=== PATIENT | female | born 1935 | race Caucasian/White ===

== ENCOUNTER → 2018-01-26 10:39 | Outpatient (CLI) | payer MEDICARE, OTHER, SELFPAY ==
--- NOTE | 2018-01-26 10:44 | CA_ITS ---
PROCEDURE: 2-D M-mode and color Doppler study INDICATIONS FOR THE TEST: Chest pain + COPD Heart Murmur Tobacco Smoking Palpitations Fatigue+ Syncope Edema Hypertension+Diabetes Mellitus Rheumatic Fever SOB WELCH Obesity Hyperlipidemia Family History HD Additional History PACER PATIENT INFORMATION HEIGHT: 66 WEIGHT:124 GENDER: Female B/P:152/87 2-D/M-MODE INTERPRETATION: 2-D MEASUREMENTS OBSERVED VALUES IN CMS Right Ventricular Dimension (RVDd) 2.4 Interventricular Septum (Thickness)(IVsd) 1.4 Left Ventricular Internal Dimensions(LVIDd) 3.8 Left Ventricular Posterior Wall (Thickness)(LVPWd) 0.6 Aortic Root 2.7 Aortic Cusp Separation 1.3 Left Atrial Dimensions (LAD) 3.2 2D 1. Left atrium is mildly enlarged, left ventricle is normal size, mild concentric left ventricular hypertrophy, visually estimated ejection fraction 55% with no obvious regional wall motion abnormality. 2. The right atrium and right ventricle are normal size and contractility, there is a pacemaker lead seen in the right atrium and right ventricle. 3. The aortic valve is minimally thickened and fibrosed. 4. The mitral and tricuspid valve leaflets are minimally thickened. 5. The pulmonic valve is poorly visualized. 6. No significant pericardial effusion noted. DOPPLER INTERROGATION: Doppler interrogation of the aortic, mitral and tricuspid valvular presence of mild mitral and tricuspid regurgitation, tricuspid and jet velocity insufficient for calculation of the right ventricular systolic pressure, diastolic parameters are inconclusive. CONCLUSION: 1. Mildly enlarged left atrium, normal left ventricular size, mild concentric left ventricular hypertrophy, visually estimated ejection fraction 55% with no obvious regional wall motion abnormality, diastolic parameters are inconclusive. 2. Mild mitral and tricuspid regurgitation 3. No significant pericardial effusion noted.
== END ==
PROVIDERS: PCP Internal Medicine; Visit Provider Internal Medicine
DX: R07.9 Chest pain, unspecified (principal); I48.0 Paroxysmal atrial fibrillation; Z95.5 Presence of coronary angioplasty implant and graft; R53.83 Other fatigue; I10 Essential (primary) hypertension
CPT/HCPCS: 93306

== ENCOUNTER → 2018-02-05 09:06 | Outpatient (POV) | payer MEDICARE, OTHER, SELFPAY | PROVIDERS: Visit Provider Dentist | DX: Z00.00 Encounter for general adult medical examination without abnormal findings (principal) ==

== ENCOUNTER → 2018-12-17 14:15 | Outpatient (CLI) | payer MEDICARE, OTHER, SELFPAY ==
[2018-12-17 15:59] LABS: Basophils % 0.4 % (0.1-2.0); Eosinophils # 0.1 K/mm3 (0.0-0.4); Eosinophils % 2.4 % (0.1-12.0); Hematocrit 31.9 % (37.0-47.0); Lymphocytes % 51.7 % (10-50); Mean Corpuscular HGB Conc 34.5 g/dL (31.8-35.4); Mean Corpuscular Hemoglobin 35.9 pg (27.0-31.2); Mean Corpuscular Volume 104.1 fl (81-99); Mean Platelet Volume 11.8 fl (7.4-10.4); Monocytes # 0.2 K/mm3 (0.1-1.0); Monocytes % 4.7 % (1.7-9.3); Neutrophils # 1.6 K/mm3 (1.8-7.8); Neutrophils % 40.8 % (37.0-80.0); Platelet Count 163 K/mm3 (142-424); Red Blood Count 3.07 M/mm3 (4.20-5.40); Red Cell Distribution Width 14.1 % (11.5-17.5); White Blood Count 3.9 K/mm3 (4.8-10.8)
[2018-12-17 16:03] LABS: MANUAL DIFFERENTIAL MANUAL DIFFERENTIAL (MANUAL DIFF)
[2018-12-17 19:47] LABS: Eosinophils % 1 % (0-3); Lymphocytes % 47 % (10-50); Macrocytosis 1+; Monocytes % 5 % (2-9); Neutrophils % 44 % (42-76); Platelet Estimate Normal; Total Cells Counted 100
[2018-12-19 19:12] LABS: Free Kappa Lt Chains 25.4 mg/L (3.3-19.4)
[2018-12-22 12:10] LABS: Albumin 3.5 g/dL (2.9-4.4); Alpha-1-Globulin 0.2 g/dL (0.0-0.4); Alpha-2-Globulin 0.8 g/dL (0.4-1.0); Gamma Globulin 1.1 g/dL (0.4-1.8); Protein, Total 6.7 g/dL (6.0-8.5)
[2018-12-22 15:04] LABS: Immunoglobulin A, Qn 299 mg/dL (64-422); Immunoglobulin G, Qn 1007 mg/dL (700-1600)
[2018-12-23 06:05] LABS: Immunoglobulin M, Qn 64 mg/dL (26-217)
== END ==
PROVIDERS: Visit Provider Internal Medicine Medical Oncology
DX: D64.9 Anemia, unspecified (principal)
CPT/HCPCS: 36415; 82784; 83883; 84155; 84165; 85007; 85025; 86334

== ENCOUNTER → 2019-01-11 14:34 | Outpatient (CLI) | payer MEDICARE, OTHER, SELFPAY ==
[2019-01-11 14:41] LABS: Basophils % 0.6 % (0.1-2.0); Eosinophils # 0.1 K/mm3 (0.0-0.4); Eosinophils % 2.6 % (0.1-12.0); Hematocrit 28.7 % (37.0-47.0); Hemoglobin 9.3 g/dL (12.2-16.2); Lymphocytes # 1.7 K/mm3 (0.7-4.5); Lymphocytes % 47.6 % (10-50); Mean Corpuscular HGB Conc 32.5 g/dL (31.8-35.4); Mean Corpuscular Volume 101.5 fl (81-99); Mean Platelet Volume 10.3 fl (7.4-10.4); Monocytes # 0.2 K/mm3 (0.1-1.0); Monocytes % 5.4 % (1.7-9.3); Neutrophils # 1.6 K/mm3 (1.8-7.8); Neutrophils % 43.8 % (37.0-80.0); Platelet Count 227 K/mm3 (142-424); Red Blood Count 2.83 M/mm3 (4.20-5.40); Red Cell Distribution Width 13.8 % (11.5-17.5); White Blood Count 3.5 K/mm3 (4.8-10.8)
== END ==
PROVIDERS: PCP Internal Medicine; Visit Provider Internal Medicine
DX: K62.5 Hemorrhage of anus and rectum (principal)
CPT/HCPCS: 85025

== ENCOUNTER 2020-01-21 14:07 | Emergency (ER) | payer OTHER, MEDICARE, SELFPAY ==
[2020-01-21 14:08] VITALS: BP 153/64; PULSE 70; RESP 18; TEMP 37.1; O2SAT 98; BMI 19.3
--- NOTE | 2020-01-21 14:08 | ECG_ITS ---
APPROVED REPORT Exam: Resting ECG HR:70 bpm ECG Measurements Heart Rate 70 AXES IA 204 P 38 QRSd 172 QRS -71 QT 466 T 93 QTc 503 <Conclusion> Electronic ventricular pacemaker Electronically signed by : Ronaldo Roque, 01/22/2020 12:18:13
[2020-01-21 14:29] VITALS: BMI 19.3
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
[2020-01-21 14:37] LABS: Basophils % 0.7 % (0.1-2.0); Hematocrit 28.7 % (37.0-47.0); Hemoglobin 9.9 g/dL (12.2-16.2); Lymphocytes # 1.6 K/mm3 (0.7-4.5); Lymphocytes % 55.9 % (10-50); Mean Corpuscular HGB Conc 34.4 g/dL (31.8-35.4); Mean Corpuscular Hemoglobin 38.7 pg (27.0-31.2); Mean Corpuscular Volume 112.4 fl (81-99); Monocytes # 0.1 K/mm3 (0.1-1.0); Monocytes % 4.5 % (1.7-9.3); Neutrophils # 1.1 K/mm3 (1.8-7.8); Neutrophils % 37.9 % (37.0-80.0); Platelet Count 128 K/mm3 (142-424); Red Blood Count 2.55 M/mm3 (4.20-5.40); Red Cell Distribution Width 15.8 % (11.5-17.5); White Blood Count 2.8 K/mm3 (4.8-10.8)
[2020-01-21 14:39] LABS: Chloride 102 mmol/L (98-107); Sodium 135 mmol/L (136-145)
[2020-01-21 14:40] LABS: MANUAL DIFFERENTIAL MANUAL DIFFERENTIAL (MANUAL DIFF)
[2020-01-21 14:42] LABS: Alanine Aminotransferase 12 U/L (12-78); Albumin Level 3.9 g/dl (3.5-5.0); Albumin/Globulin Ratio 1.4 (1.1-1.8); Alkaline Phosphatase 67 U/L (38-126); Aspartate Amino Transferase 20 U/L (14-36); Bilirubin,Total 0.5 mg/dl (0.2-1.3); Blood Urea Nitrogen 16 mg/dl (7-17); Carbon Dioxide 31 mmol/L (22.0-30.0); Creatinine Clearance Estimated 37 mL/min (50-200); Estimated Glomerular Filt Rate 80 ml/min (>60); GFR (African American) 97 ML/MIN (>60); Globulin 2.8 g/dL (1.3-3.2); Total Protein,Serum 6.7 g/dl (6.3-8.2)
[2020-01-21 14:43] LABS: Calcium 9.4 mg/dl (8.4-10.2); Glucose 100 mg/dl (74-100)
[2020-01-21 14:45] VITALS: BP 153/64; PULSE 70; RESP 18; O2SAT 98
[2020-01-21 14:54] LABS: Lymphocytes % 51 % (10-50); Monocytes % 3 % (2-9); Neutrophils % 38 % (42-76); Total Cells Counted 100
[2020-01-21 14:55] LABS: Acanthocytes 1+; Anisocytosis 2+; Macrocytosis 2+; Platelet Estimate Slight Decrease; Poikilocytosis 1+
[2020-01-21 14:56] LABS: Troponin I < 0.01 ng/ml (0.00-0.034)
[2020-01-21 15:11] VITALS: BP 153/68; PULSE 70; RESP 20; O2SAT 99
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
[2020-01-21 17:07] VITALS: BP 150/85; PULSE 80; RESP 20; TEMP 36.8; O2SAT 98
== END 2020-01-21 17:08 | disposition home or self-care (01) ==
PROVIDERS: Emergency Provider Family Medicine
DX: S00.12XA Contusion of left eyelid and periocular area, initial encounter (principal); V47.6XXA Car passenger injured in collision with fixed or stationary object in traffic accident, initial encounter; Y92.414 Local residential or business street as the place of occurrence of the external cause; R55 Syncope and collapse; I48.0 Paroxysmal atrial fibrillation; I10 Essential (primary) hypertension; I25.10 Atherosclerotic heart disease of native coronary artery without angina pectoris; Z95.0 Presence of cardiac pacemaker
CPT/HCPCS: 70450; 71045; 72125; 72170; 73080; 80053; 84484; 85007; 85025; 93005; 96365; 99284

== ENCOUNTER 2020-09-25 10:31 | Outpatient (CLI) | payer MEDICARE, OTHER, SELFPAY ==
[2020-09-25] VITALS (19 sets, daily range): BP systolic 95–155; BP diastolic 46–81; PULSE 67–73; RESP 16–18; TEMP 36.2–36.7; O2SAT 98–100; BMI 16.6
[2020-09-25 11:02] LABS: Reticulocyte % (Auto) 1.6 % (0.9-3.2)
[2020-09-25 11:19] LABS: Hematocrit 20.8 % (37.0-47.0); Hemoglobin 6.6 g/dL (12.2-16.2)
[2020-09-25 17:47] LABS: Hematocrit 27.2 % (37.0-47.0)
[2020-09-25 18:15] LABS: Hemoglobin 8.9 g/dL (12.2-16.2)
== END 2020-09-25 17:30 | disposition home or self-care (01) ==
LOC: INF 10:31
PROVIDERS: PCP Internal Medicine; Visit Provider Internal Medicine
DX: D64.9 Anemia, unspecified (principal)
CPT/HCPCS: 36430; 85014; 85018; 85044; 86850; P9016

== ENCOUNTER 2020-11-22 08:21 | Outpatient (CLI) | payer MEDICARE, OTHER, SELFPAY ==
[2020-11-22] VITALS (20 sets, daily range): BP systolic 103–136; BP diastolic 38–82; PULSE 67–71; RESP 20; TEMP 36.1–36.5; O2SAT 97–98; BMI 17.9
[2020-11-22 09:05] LABS: Hematocrit 20.6 % (37.0-47.0); Hemoglobin 6.7 g/dL (12.2-16.2)
[2020-11-22 15:53] LABS: Hematocrit 31.2 % (37.0-47.0)
[2020-11-22 15:57] LABS: Hemoglobin 10.3 g/dL (12.2-16.2)
== END 2020-11-22 15:45 | disposition home or self-care (01) ==
LOC: INF 08:21
PROVIDERS: Visit Provider Internal Medicine
DX: D64.9 Anemia, unspecified (principal)
CPT/HCPCS: 36430; 85014; 85018; 86850; P9016

== ENCOUNTER → 2020-11-27 21:30 | Outpatient (CLI) | payer MEDICARE, OTHER, SELFPAY ==
[2020-11-28 14:15] LABS: Occult Blood,Stool Negative (Negative)
== END ==
PROVIDERS: Visit Provider Internal Medicine
DX: D64.9 Anemia, unspecified (principal)
CPT/HCPCS: 82272; G0328

== ENCOUNTER → 2020-12-21 10:44 | Outpatient (CLI) | payer MEDICARE, OTHER, SELFPAY ==
[2020-12-21 11:33] LABS: Basophils % 0.5 % (0.1-2.0); Eosinophils % 0.6 % (0.1-12.0); Hematocrit 28.4 % (37.0-47.0); Hemoglobin 9.7 g/dL (12.2-16.2); Lymphocytes # 1.8 K/mm3 (0.7-4.5); Lymphocytes % 62.5 % (10-50); Mean Corpuscular Hemoglobin 34.7 pg (27.0-31.2); Mean Corpuscular Volume 101.8 fl (81-99); Mean Platelet Volume 13.3 fl (7.4-10.4); Monocytes # 0.1 K/mm3 (0.1-1.0); Monocytes % 5.2 % (1.7-9.3); Neutrophils # 0.9 K/mm3 (1.8-7.8); Neutrophils % 31.2 % (37.0-80.0); Platelet Count 71 K/mm3 (142-424); Red Blood Count 2.79 M/mm3 (4.20-5.40); Red Cell Distribution Width 22.3 % (11.5-17.5); White Blood Count 2.8 K/mm3 (4.8-10.8)
[2020-12-21 11:41] LABS: MANUAL DIFFERENTIAL MANUAL DIFFERENTIAL (MANUAL DIFF)
[2020-12-21 12:15] LABS: Eosinophils % 1 % (0-3); Lymphocytes % 43 % (10-50); Monocytes % 7 % (2-9); Neutrophils % 38 % (42-76); Total Cells Counted 100
[2020-12-21 12:17] LABS: Anisocytosis 1+; Macrocytosis 1+; Platelet Estimate Moderate Decrease
[2020-12-21 13:17] LABS: Alanine Aminotransferase 16 U/L (12-78); Albumin Level 4.2 g/dl (3.5-5.0); Albumin/Globulin Ratio 1.6 (1.1-1.8); Alkaline Phosphatase 68 U/L (38-126); Anion Gap 6.2 mEq/L (5-15); Aspartate Amino Transferase 24 U/L (14-36); Bilirubin,Total 0.6 mg/dl (0.2-1.3); Blood Urea Nitrogen 15 mg/dl (7-17); Calcium 9.6 mg/dl (8.4-10.2); Carbon Dioxide 29 mmol/L (22.0-30.0); Chloride 105 mmol/L (98-107); Estimated Glomerular Filt Rate 80 ml/min (>60); GFR (African American) 96 ML/MIN (>60); Globulin 2.6 g/dL (1.3-3.2); Glucose 77 mg/dl (74-100); Iron 208 ug/dL (37-170); Potassium 5.2 mmoL/L (3.5-5.1); Sodium 135 mmol/L (136-145); Total Protein,Serum 6.8 g/dl (6.3-8.2)
[2020-12-21 13:54] LABS: Total Iron Binding Capacity 321 ug/dL (265-497)
[2020-12-21 14:21] LABS: Ferritin 224 ng/ml (11.1-264)
[2020-12-22 15:38] LABS: Erythropoietin 407.2 mIU/mL (2.6-18.5)
[2020-12-23 10:46] LABS: Peripheral Smear Review Scanned Result
== END ==
PROVIDERS: Visit Provider Internal Medicine Medical Oncology
DX: D61.818 Other pancytopenia (principal); D64.9 Anemia, unspecified
CPT/HCPCS: 36415; 80053; 82668; 82728; 83540; 83550; 85007; 85025

== ENCOUNTER → 2021-01-19 10:29 | Outpatient (CLI) | payer MEDICARE, OTHER, SELFPAY ==
[2021-01-19 11:03] LABS: Monocytes # 0.1 K/mm3 (0.1-1.0); Neutrophils # 0.8 K/mm3 (1.8-7.8)
[2021-01-19 11:06] LABS: Basophils % 0.3 % (0.1-2.0); Eosinophils % 0.8 % (0.1-12.0); Lymphocytes # 2.1 K/mm3 (0.7-4.5); Lymphocytes % 70.1 % (10-50); Mean Corpuscular HGB Conc 33.7 g/dL (31.8-35.4); Mean Corpuscular Hemoglobin 36.8 pg (27.0-31.2); Mean Platelet Volume 13.1 fl (7.4-10.4); Monocytes % 2.7 % (1.7-9.3); Neutrophils % 26.2 % (37.0-80.0); Platelet Count 71 K/mm3 (142-424); Red Blood Count 1.95 M/mm3 (4.20-5.40); Red Cell Distribution Width 23.7 % (11.5-17.5)
[2021-01-19 11:11] LABS: Hematocrit 21.2 % (37.0-47.0); Hemoglobin 7.2 g/dL (12.2-16.2)
[2021-01-19 11:13] LABS: MANUAL DIFFERENTIAL MANUAL DIFFERENTIAL (MANUAL DIFF)
--- NOTE | 2021-01-19 11:29 | PC.NURSE ---
LAB NOTFICATION OF HGB 7.2; DR BRISCOE IS AWARE AND 1 UNIT OF PRBCS ORDERED
[2021-01-19 11:44] LABS: Lymphocytes % 62 % (10-50); Monocytes % 3 % (2-9); Neutrophils % 29 % (42-76); Platelet Estimate Moderate Decrease; Total Cells Counted 100
[2021-01-19 11:45] LABS: Anisocytosis 2+; Macrocytosis 2+
[2021-01-22 16:13] LABS: Erythropoietin 1340.3 mIU/mL (2.6-18.5)
== END ==
PROVIDERS: Visit Provider Internal Medicine Medical Oncology
DX: D64.9 Anemia, unspecified (principal)
CPT/HCPCS: 36415; 82668; 85007; 85025; 86850

== ENCOUNTER 2021-01-20 08:45 | Outpatient (CLI) | payer MEDICARE, OTHER, SELFPAY ==
[2021-01-20] VITALS (13 sets, daily range): BP systolic 100–132; BP diastolic 24–50; PULSE 68–71; RESP 16–18; TEMP 36.7–36.9; O2SAT 99–100; BMI 28.2
--- NOTE | 2021-01-20 14:21 | PC.NURSE ---
Pt was a difficult stick for iv as well as blood draws. required 2 iv's during the transfusion process. pt was very fidgety and restless per .
[2021-01-20 14:43] LABS: Hematocrit 25.4 % (37.0-47.0)
== END 2021-01-20 14:46 | disposition home or self-care (01) ==
PROVIDERS: PCP Internal Medicine; Visit Provider Internal Medicine Medical Oncology
DX: D64.9 Anemia, unspecified (principal)
CPT/HCPCS: 36430; 85014; 85018; P9016

== ENCOUNTER → 2021-02-08 07:54 | Outpatient (CLI) | payer MEDICARE, OTHER, SELFPAY | PROVIDERS: Visit Provider Internal Medicine Medical Oncology | DX: D64.9 Anemia, unspecified (principal) ==

== ENCOUNTER 2021-02-08 11:39 | Day surgery (SDC) | payer MEDICARE, OTHER, SELFPAY ==
[2021-02-08 12:02] LABS: Coronavirus 19, PCR Not Detected (NotDetected); Influenza A, PCR Not Detected (NotDetected); Influenza B, PCR Not Detected (NotDetected)
[2021-02-08 12:14] VITALS: BMI 17.6
[2021-02-08 12:22] VITALS: BP 131/70; PULSE 68; RESP 18; TEMP 36.2; O2SAT 98
[2021-02-08 13:01] VITALS: BP 108/52; PULSE 70; RESP 16; TEMP 36.6; O2SAT 100
== END 2021-02-08 13:15 | disposition home or self-care (01) ==
LOC: OUTP 11:40
PROVIDERS: PCP Internal Medicine; Visit Provider Internal Medicine Medical Oncology
DX: D61.818 Other pancytopenia (principal)
CPT/HCPCS: 38221; U0003

== ENCOUNTER 2021-03-05 10:00 | Outpatient (CLI) | payer OTHER, MEDICARE, SELFPAY ==
[2021-03-05 10:05] VITALS: BMI 17.7
--- NOTE | 2021-03-05 10:11 | PC.NURSE ---
1011-collected cbc from pt via peripheral stick; pt to wait on results in case pt needs blood transfusion
[2021-03-05 10:22] LABS: Basophils % 0.5 % (0.1-2.0); Eosinophils % 0.8 % (0.1-12.0); Lymphocytes # 2.4 K/mm3 (0.7-4.5); Lymphocytes % 70.6 % (10-50); Mean Corpuscular HGB Conc 33.3 g/dL (31.8-35.4); Mean Corpuscular Hemoglobin 35.9 pg (27.0-31.2); Mean Corpuscular Volume 107.8 fl (81-99); Mean Platelet Volume 12.8 fl (7.4-10.4); Monocytes # 0.1 K/mm3 (0.1-1.0); Monocytes % 2.1 % (1.7-9.3); Neutrophils # 0.9 K/mm3 (1.8-7.8); Platelet Count 75 K/mm3 (142-424); White Blood Count 3.3 K/mm3 (4.8-10.8)
[2021-03-05 10:30] LABS: Red Cell Distribution Width 25.7 % (11.5-17.5)
--- NOTE | 2021-03-05 10:30 | PC.NURSE ---
1030- spoke with mark zee, [employer] [place] critical value hgb 5.6 and hct 16.9; repeated and verified pt sathish márquez 36 [id number] and critical value.
[2021-03-05 10:32] LABS: MANUAL DIFFERENTIAL MANUAL DIFFERENTIAL (MANUAL DIFF)
[2021-03-05 10:36] LABS: Hemoglobin 5.6 g/dL (12.2-16.2); Red Blood Count 1.56 M/mm3 (4.20-5.40)
[2021-03-05 10:37] LABS: Hematocrit 16.9 % (37.0-47.0)
--- NOTE | 2021-03-05 10:50 | PC.NURSE ---
barron from lab here to collect labs for type and cross.
[2021-03-05 11:07] LABS: Anisocytosis 2+; Corrected White Blood Count 3.1 K/mm3 (4.8-10.8); Eosinophils % 1 % (0-3); Giant Platelets 2+; Lymphocytes % 49 % (10-50); Macrocytosis 3+; Monocytes % 6 % (2-9); Neutrophils % 29 % (42-76); Nucleated Red Blood Cells 6; Platelet Estimate Normal; Total Cells Counted 100
[2021-03-05 11:08] LABS: Hypochromasia 2+
== END 2021-03-05 11:00 | disposition home or self-care (01) ==
LOC: INF 10:03
PROVIDERS: Visit Provider Internal Medicine Medical Oncology
DX: D46.9 Myelodysplastic syndrome, unspecified (principal)
CPT/HCPCS: 36415; 85007; 85025; 86850

== ENCOUNTER 2021-03-06 08:20 | Outpatient (CLI) | payer OTHER, MEDICARE, SELFPAY ==
[2021-03-06] VITALS (20 sets, daily range): BP systolic 106–141; BP diastolic 40–72; PULSE 64–77; RESP 17–18; TEMP 35.9–36.3; O2SAT 94–100; BMI 18.1
--- NOTE | 2021-03-06 09:30 | PC.NURSE ---
0930- PT BLOOD TRANSFUSION BEGAN AT THIS TIME. INFUSION RATE STARTED AT 100ML/HR AT THIS TIME.
--- NOTE | 2021-03-06 10:00 | PC.NURSE ---
1000- INFUSION RATE INCREASED TO 125MLHR. PT EATING BREAKFAST AND TOLERATING INFUSION WELL AT THIS TIME.
--- NOTE | 2021-03-06 10:30 | PC.NURSE ---
1030- PT INFUSION RATE INCREASED TO 150ML/HR AT THIS TIME. PT TOLERATING WELL.
--- NOTE | 2021-03-06 10:50 | PC.NURSE ---
1050- PT INFUSION RATE INCREASED TO 175ML/HR AT THIS TIME. PT TOLERATING WELL.
--- NOTE | 2021-03-06 11:30 | PC.NURSE ---
1130- INFUSION RATE INCREASED TO 200ML/HR AT THIS TIME. PT REPORTS BEING FIDGETY AND THAT SHE IS UNABLE TO SIT STILL. PT REPORTS THIS IS NORMAL BEHAVIOR FOR HER WHEN SHE SITS FOR A LONG TIME AT HOME WELL. PT OFFERED A BREAK TO WALK AROUND IN THE DEPARTMENT BETWEEN UNITS TO HELP RELIEVE THIS.
--- NOTE | 2021-03-06 11:57 | PC.NURSE ---
1150- BLOOD TRANSFUSION COMPLETE AT THIS TIME. PT NOW FLUSHING WITH NS.
--- NOTE | 2021-03-06 12:35 | PC.NURSE ---
1235-transfusion of unit 2 started at this time at 100ml/hr
--- NOTE | 2021-03-06 13:05 | PC.NURSE ---
1305- pt infusion rate increased to 125ml/hr. pt tolerating infusion at this time. pt up to the bathroom at this time with stand by assistance
--- NOTE | 2021-03-06 13:20 | PC.NURSE ---
1320- pt infusion rate increased to 150ml/hr at this time. pt reported being restless and fidgety again at this time. with this nurses assistance pt ambulated around the department at this time
--- NOTE | 2021-03-06 13:35 | PC.NURSE ---
1335- pt infusion rate increased to 175ml/hr at this time
--- NOTE | 2021-03-06 13:55 | PC.NURSE ---
1355- infusion rate increased to 200ml/hr at this time.
[2021-03-06 15:43] LABS: Hematocrit 25.1 % (37.0-47.0); Hemoglobin 8.7 g/dL (12.2-16.2)
== END 2021-03-06 15:41 | disposition home or self-care (01) ==
LOC: INF 08:24
PROVIDERS: Visit Provider Internal Medicine Medical Oncology
DX: D64.9 Anemia, unspecified (principal)
CPT/HCPCS: 36430; 85014; 85018; P9016

== ENCOUNTER 2021-04-24 11:30 | Outpatient (CLI) | payer OTHER, MEDICARE, SELFPAY ==
[2021-04-24] VITALS (10 sets, daily range): BP systolic 115–159; BP diastolic 46–74; PULSE 69–79; RESP 18–20; TEMP 35.6–36.4; O2SAT 95; BMI 17.7
[2021-04-24 12:47] LABS: Hematocrit 17.5 % (37.0-47.0)
[2021-04-24 12:49] LABS: Hemoglobin 5.4 g/dL (12.2-16.2)
--- NOTE | 2021-04-24 16:15 | PC.NURSE ---
1615-pt to get 2nd unit of prbcs tomorrow;leaving right wrist 22g iv in place.
== END 2021-04-24 16:15 | disposition home or self-care (01) ==
LOC: INF 11:33
PROVIDERS: PCP Internal Medicine; Visit Provider Internal Medicine Medical Oncology
DX: D61.818 Other pancytopenia (principal)
CPT/HCPCS: 36430; 85014; 85018; 86850; P9016

== ENCOUNTER 2021-04-25 09:07 | Outpatient (CLI) | payer OTHER, MEDICARE, SELFPAY ==
[2021-04-25] VITALS (12 sets, daily range): BP systolic 93–154; BP diastolic 43–74; PULSE 70; RESP 18; TEMP 36.1–36.4; O2SAT 98–100; BMI 17.7
[2021-04-25 13:19] LABS: Hematocrit 28.3 % (37.0-47.0); Hemoglobin 9.6 g/dL (12.2-16.2)
== END 2021-04-25 13:10 | disposition home or self-care (01) ==
LOC: INF 09:08
PROVIDERS: PCP Internal Medicine; Visit Provider Internal Medicine Medical Oncology
DX: C95.90 Leukemia, unspecified not having achieved remission (principal)
CPT/HCPCS: 36430; 85014; 85018; P9016

== ENCOUNTER → 2021-05-14 10:38 | Outpatient (CLI) | payer OTHER, MEDICARE, SELFPAY ==
[2021-05-14 11:21] LABS: Basophils % 0.3 % (0.1-2.0); Eosinophils % 0.6 % (0.1-12.0); Hematocrit 27.2 % (37.0-47.0); Hemoglobin 8.6 g/dL (12.2-16.2); Lymphocytes # 2.8 K/mm3 (0.7-4.5); Lymphocytes % 78.1 % (10-50); Mean Corpuscular HGB Conc 31.6 g/dL (31.8-35.4); Mean Corpuscular Hemoglobin 31.9 pg (27.0-31.2); Mean Corpuscular Volume 100.7 fl (81-99); Mean Platelet Volume 12.8 fl (7.4-10.4); Monocytes # 0.1 K/mm3 (0.1-1.0); Monocytes % 1.4 % (1.7-9.3); Neutrophils # 0.7 K/mm3 (1.8-7.8); Neutrophils % 19.6 % (37.0-80.0); Platelet Count 61 K/mm3 (142-424); Red Cell Distribution Width 21.2 % (11.5-17.5); White Blood Count 3.6 K/mm3 (4.8-10.8)
[2021-05-14 11:25] LABS: MANUAL DIFFERENTIAL MANUAL DIFFERENTIAL (MANUAL DIFF)
[2021-05-14 11:41] LABS: Chloride 104 mmol/L (98-107); Sodium 139 mmol/L (136-145)
[2021-05-14 11:44] LABS: Blood Urea Nitrogen 10 mg/dl (7-17); Carbon Dioxide 29 mmol/L (22.0-30.0); Estimated Glomerular Filt Rate 80 ml/min (>60); GFR (African American) 96 ML/MIN (>60); Glucose 109 mg/dl (74-100); Potassium 4.4 mmoL/L (3.5-5.1)
[2021-05-14 13:57] LABS: Anisocytosis 2+; Hypochromasia 2+; Lymphocytes % 30 % (10-50); Macrocytosis 2+; Monocytes % 1 % (2-9); Neutrophils % 19 % (42-76); Platelet Estimate Normal; Total Cells Counted 100
[2021-05-14 17:27] LABS: Anion Gap 10.4 mEq/L (5-15)
== END ==
PROVIDERS: Visit Provider Surgery
DX: Z01.812 Encounter for preprocedural laboratory examination (principal); Z11.52 Encounter for screening for COVID-19; U07.1 COVID-19; C95.90 Leukemia, unspecified not having achieved remission
CPT/HCPCS: 36415; 80048; 85007; 85025; C9803; U0003; U0005

== ENCOUNTER 2021-05-16 09:46 | Outpatient (CLI) | payer OTHER, MEDICARE, SELFPAY ==
[2021-05-16] VITALS (10 sets, daily range): BP systolic 118–136; BP diastolic 53–80; PULSE 69–71; RESP 16; TEMP 36.2–36.6; O2SAT 98–100
== END 2021-05-16 13:55 | disposition home or self-care (01) ==
PROVIDERS: PCP Internal Medicine; Visit Provider Internal Medicine
DX: U07.1 COVID-19 (principal); Z23 Encounter for immunization
CPT/HCPCS: 96365

== ENCOUNTER 2021-06-22 14:45 | Outpatient (CLI) | payer OTHER, MEDICARE, SELFPAY ==
[2021-06-22] VITALS (21 sets, daily range): BP systolic 115–150; BP diastolic 40–79; PULSE 69–72; RESP 14–16; TEMP 36.5–36.6; O2SAT 95–100; BMI 17.9
[2021-06-22 15:27] LABS: Basophils % 0.5 % (0.1-2.0); Lymphocytes # 1.8 K/mm3 (0.7-4.5); Lymphocytes % 66.6 % (10-50); Mean Corpuscular HGB Conc 32.9 g/dL (31.8-35.4); Mean Corpuscular Hemoglobin 32.9 pg (27.0-31.2); Mean Platelet Volume 15.7 fl (7.4-10.4); Monocytes # 0.1 K/mm3 (0.1-1.0); Neutrophils # 0.9 K/mm3 (1.8-7.8); Neutrophils % 30.8 % (37.0-80.0); Platelet Count 78 K/mm3 (142-424); Red Blood Count 1.26 M/mm3 (4.20-5.40); White Blood Count 2.8 K/mm3 (4.8-10.8)
[2021-06-22 15:31] LABS: Red Cell Distribution Width 26.5 % (11.5-17.5)
[2021-06-22 15:37] LABS: Hematocrit 12.6 % (37.0-47.0)
[2021-06-22 15:38] LABS: MANUAL DIFFERENTIAL MANUAL DIFFERENTIAL (MANUAL DIFF)
[2021-06-22 15:39] LABS: Hemoglobin 4.2 g/dL (12.2-16.2)
[2021-06-22 16:36] LABS: Corrected White Blood Count 2.6 K/mm3 (4.8-10.8); Lymphocytes % 60 % (10-50); Macrocytosis 1+; Neutrophils % 31 % (42-76); Nucleated Red Blood Cells 6; Platelet Estimate Marked Decrease; Total Cells Counted 100
[2021-06-22 16:37] LABS: Anisocytosis 2+
--- NOTE | 2021-06-22 17:03 | PC.NURSE ---
1538 This RN/Attraction Worker was contacted by Dr Holliday's nurse who wished for patient/family to be contacted and notified of critical H/H. This RN was directed to have the patient present to the ER for work up of anemia. Patient Merlin Ernandez was contacted and notified to bring pt to the ER to be assessed. ER staff was notified as well as ER MD.
--- NOTE | 2021-06-22 22:48 | PC.NURSE ---
PT HAS BEEN VERY RESTLESS, WANTS TO GO HOME AND IS CONFUSED. PRESENT AND RN AT BEDSIDE CONTINUOUSLY DURING INFUSIONS.
== END 2021-06-22 23:30 | disposition home or self-care (01) ==
LOC: LAB 14:46 → INF 18:40
PROVIDERS: Visit Provider Internal Medicine Medical Oncology
DX: C95.90 Leukemia, unspecified not having achieved remission (principal); D64.9 Anemia, unspecified
CPT/HCPCS: 36415; 36430; 85007; 85025; 86850; G0463; P9016

== ENCOUNTER 2021-06-22 16:16 | Emergency (ER) | payer OTHER, MEDICARE, SELFPAY ==
[2021-06-22 16:17] VITALS: BP 108/48; PULSE 68; RESP 16; TEMP 36.6; O2SAT 97; BMI 17.7
--- NOTE | 2021-06-22 16:53 | ECG_ITS ---
APPROVED REPORT Exam: Resting ECG HR:69 bpm ECG Measurements Heart Rate 69 AXES QRSd 120 QRS 96 QT 412 T -71 QTc 441 Conclusion Demand pacemaker, interpretation is based on intrinsic rhythm Undetermined rhythm Right bundle branch block T wave abnormality, consider inferolateral ischemia Abnormal ECG Electronically signed by : Harry Izaguirre MD 06/23/2021 10:01:55
[2021-06-22 17:05] VITALS: BP 135/42; PULSE 68; O2SAT 68
[2021-06-22 17:17] LABS: Basophils % 0.6 % (0.1-2.0); Chloride 104 mmol/L (98-107); Eosinophils % 0.2 % (0.1-12.0); Lymphocytes # 1.8 K/mm3 (0.7-4.5); Lymphocytes % 60.9 % (10-50); Mean Corpuscular Hemoglobin 33.9 pg (27.0-31.2); Mean Corpuscular Volume 99.7 fl (81-99); Mean Platelet Volume 15.9 fl (7.4-10.4); Monocytes # 0.1 K/mm3 (0.1-1.0); Neutrophils # 1.1 K/mm3 (1.8-7.8); Neutrophils % 35.4 % (37.0-80.0); Platelet Count 83 K/mm3 (142-424); Potassium 3.6 mmoL/L (3.5-5.1); Red Blood Count 1.31 M/mm3 (4.20-5.40); Sodium 138 mmol/L (136-145)
[2021-06-22 17:19] LABS: Red Cell Distribution Width 26.6 % (11.5-17.5)
[2021-06-22 17:20] LABS: Alanine Aminotransferase 73 U/L (12-78); Albumin Level 4.3 g/dl (3.5-5.0); Albumin/Globulin Ratio 1.6 (1.1-1.8); Alkaline Phosphatase 88 U/L (38-126); Anion Gap 14.6 mEq/L (5-15); Aspartate Amino Transferase 67 U/L (14-36); Bilirubin,Total 0.6 mg/dl (0.2-1.3); Blood Urea Nitrogen 32 mg/dl (7-17); Carbon Dioxide 23 mmol/L (22.0-30.0); Creatinine Clearance Estimated 32 mL/min (50-200); Estimated Glomerular Filt Rate 60 ml/min (>60); GFR (African American) 72 ML/MIN (>60); Globulin 2.7 g/dL (1.3-3.2)
[2021-06-22 17:21] LABS: Calcium 9.3 mg/dl (8.4-10.2); Glucose 124 mg/dl (74-100)
--- NOTE | 2021-06-22 17:27 | HMH.EDGENADL ---
ED Disposition Clinical Impression: Pancytopenia Anemia Qualifiers: Anemia type: unspecified type Qualified Code(s): D64.9 - Anemia, unspecified Leukemia Qualifiers: Leukemia type: unspecified Leukemia Active/Remission status: without remission Qualified Code(s): C95.90 - Leukemia, unspecified not having achieved remission Disposition: Home, Self-Care Condition on Discharge: Fair Additional Instructions: Go to the OB department for transfusion. Go to the lab on Friday for blood draw for blood counts. Referrals: Ronaldo Roque [Primary Care Provider] - - Critical Care Critical Care Time: No Attestation: On 06/22/21, the high probability of a clinically significant, sudden or life threatening deterioration of the following system(s) required my full and direct attention, intervention and personal management. The time I documented below is in addition to time spent performing reported procedures but includes the following listed in this critical care notation. Medical Decision Making - Salbador Inquiry Pt receiving controlled substance: No Vital Signs: 06/22/21 16:17 06/22/21 17:05 Temperature 97.9 F Temperature Source Oral Pulse Rate 68 Pulse Rate [Right Radial] 68 Respiratory Rate 16 Blood Pressure 135/42 L Blood Pressure [Right Arm] 108/48 L Blood Pressure Mean 69 Blood Pressure Mean [Right Arm] 68 Blood Pressure Source [Right Arm] Automatic Cuff Blood Pressure Position [Right Arm] Sitting 02 Sat by Pulse Oximetry 97 68 L Oxygen Delivery Method Room Air - Lab Data Lab Results 06/22/21 17:00: WBC 3.0 L, RBC 1.31 L*, Hgb 4.2 L*, Hct 13.0 L*, MCV 99.7 H, MCH 33.9 H, MCHC 34.0, RDW 26.6 H*, Plt Count 83 L, MPV 15.9 H, Neut % (Auto) 35.4 L, Lymph % (Auto) 60.9 H, [place] % (Auto) 3.0, Eos % (Auto) 0.2, Baso % (Auto) 0.6, Neut # (Auto) 1.1 L, Lymph # (Auto) 1.8, [place] # (Auto) 0.1, Eos # (Auto) 0.0, Baso # (Auto) 0.0 06/22/21 17:00: Sodium 138, Potassium 3.6, Chloride 104, Carbon Dioxide 23, Anion Gap 14.6, BUN 32 H, Creatinine 0.90, Estimated Creat Clear 32, Estimated GFR 60, Est GFR ( Amer) 72, Glucose 124 H, Calcium 9.3, Total Bilirubin 0.6, AST 67 H, ALT 73, Alkaline Phosphatase 88, Total Protein 7.0, Albumin 4.3, Globulin 2.7, Albumin/Globulin Ratio 1.6 Result diagrams: 06/22/21 17:00 06/22/21 17:00 Orders (Tests/Meds): ORDERS Category Date Time Status Trop I [Troponin I] Stat Lab 06/22/21 17:00 Received Troponin I Q3H Lab 06/22/21 20:45 Ordered Troponin I Q3H Lab 06/22/21 23:45 Ordered - ECG Data Tracing #1 EKG interpreted by Ronny Esteban MD: Rhythm: Electronic ventricular pacemaker with few marshall beats, no definite P waves seen. Underlying rhythm is possibly atrial fibrillation. Rate: 69 T waves: Inversion inferiorly and laterally - Physician Consults Physician Consulted: Miya Time: 17:56 Reason -: Other (Hematology oncology) Comment/Response: Request that the patient be transfused 2 units of packed red blood cells, then she can go home. Recheck blood counts on Friday. General Adult HPI - General Chief complaint: Weakness Stated complaint: Physical Ref Time Seen by Provider: 06/22/21 17:28 Mode of Arrival: Wheelchair Limitations: pt has dementia Description of Symptoms (Recalled from ER Triage Doc. by RN): Pt sent to ER for evaluation r/t low H/H. Pt states pt has chronic anemia r/t leukemia. States pt had blood work today to prepare to blood transfusion that pt was scheduled for on friday. Pt reports pt has generalized weakness, states that is normaly when pt is needing a blood transfusion. Per staff that spoke with Dr. Holliday who sent pt to ER, states pt is not normally this low on hgb so she wanted pt evaluated. - History of Present Illness HPI narrative: The patient has dementia. History obtained from . The patient simply states I want to go . states that they were supposed to get a transfusion on M
[2021-06-22 17:31] LABS: Hemoglobin 4.2 g/dL (12.2-16.2)
--- NOTE | 2021-06-22 17:51 | PC.NURSE ---
Dr Esteban speaking to Dr Holliday
[2021-06-22 17:58] LABS: Troponin I 0.01 ng/ml (0.00-0.034)
--- NOTE | 2021-06-22 18:15 | PC.NURSE ---
warehouse order puller notified pt is ready for d/c, states she will let OB staff know to come get pt for transfusion
[2021-06-22 18:55] VITALS: BP 148/88; PULSE 78; RESP 18; TEMP 36.7; O2SAT 97
== END 2021-06-22 19:00 | disposition home or self-care (01) ==
PROVIDERS: Emergency Provider Emergency Medicine; PCP Internal Medicine
DX: C92.20 Atypical chronic myeloid leukemia, BCR/ABL-negative, not having achieved remission (principal); D61.818 Other pancytopenia; I10 Essential (primary) hypertension; I25.10 Atherosclerotic heart disease of native coronary artery without angina pectoris; I48.0 Paroxysmal atrial fibrillation; Z79.899 Other long term (current) drug therapy; F03.90 Unspecified dementia, unspecified severity, without behavioral disturbance, psychotic disturbance, mood disturbance, and anxiety
CPT/HCPCS: 80053; 84484; 85025; 93005; 99283

== ENCOUNTER → 2021-06-25 10:58 | Outpatient (CLI) | payer OTHER, MEDICARE, SELFPAY ==
[2021-06-25 11:33] LABS: Hematocrit 22.9 % (37.0-47.0); Hemoglobin 7.7 g/dL (12.2-16.2)
== END ==
PROVIDERS: Visit Provider Internal Medicine Medical Oncology
DX: C95.90 Leukemia, unspecified not having achieved remission (principal)
CPT/HCPCS: 36415; 85014; 85018

== ENCOUNTER 2021-07-30 11:14 | Outpatient (CLI) | payer OTHER, MEDICARE, SELFPAY ==
[2021-07-30] VITALS (8 sets, daily range): BP systolic 105–160; BP diastolic 31–75; PULSE 69–75; RESP 16; TEMP 36.1–36.8; O2SAT 92–100; BMI 17.9
[2021-07-30 12:13] LABS: Basophils # 0.1 K/mm3 (0-0.2); Eosinophils % 0.1 % (0.1-12.0); Lymphocytes # 4.4 K/mm3 (0.7-4.5); Lymphocytes % 88.3 % (10-50); Mean Corpuscular Hemoglobin 31.9 pg (27.0-31.2); Mean Corpuscular Volume 96.7 fl (81-99); Mean Platelet Volume 15.2 fl (7.4-10.4); Monocytes # 0.1 K/mm3 (0.1-1.0); Monocytes % 1.3 % (1.7-9.3); Neutrophils # 0.5 K/mm3 (1.8-7.8); Platelet Count 85 K/mm3 (142-424); Red Blood Count 1.34 M/mm3 (4.20-5.40); Red Cell Distribution Width 22.3 % (11.5-17.5)
[2021-07-30 12:33] LABS: Neutrophils % 9.3 % (37.0-80.0)
[2021-07-30 12:35] LABS: Hemoglobin 4.3 g/dL (12.2-16.2); MANUAL DIFFERENTIAL MANUAL DIFFERENTIAL (MANUAL DIFF)
--- NOTE | 2021-07-30 12:35 | PC.NURSE ---
DANY CALLED RN AT 1235 TO REPORT HGB 4.3, HCT 13. RN REPEATED AND VERIFIED PT NAME, , AND LAB VALUE. RESULTS CALLED TO AND TO FOLLOW STANDING ORDERS.
[2021-07-30 13:14] LABS: Lymphocytes % 65 % (10-50); Microcytosis 1+; Monocytes % 17 % (2-9); Neutrophils % 8 % (42-76); Nucleated Red Blood Cells 1; Platelet Estimate Marked Decrease; Total Cells Counted 100
[2021-07-30 13:15] LABS: Hypochromasia 1+; Ovalocytes 1+
--- NOTE | 2021-07-30 16:14 | PC.NURSE ---
PT TO RETURN TOMORROW TO COMPLETE TRANSFUSION. POST BLOOD TRANSFUSION VITALS TO BE OBTAINED THEN PER MD ORDER.
== END 2021-07-30 16:05 | disposition home or self-care (01) ==
LOC: INF 11:16
PROVIDERS: PCP Internal Medicine; Visit Provider Internal Medicine Medical Oncology
DX: C95.90 Leukemia, unspecified not having achieved remission (principal)
CPT/HCPCS: 36430; 85007; 85025; 86850; P9016

== ENCOUNTER 2021-07-31 10:32 | Outpatient (CLI) | payer OTHER, MEDICARE, SELFPAY ==
[2021-07-31] VITALS (9 sets, daily range): BP systolic 103–160; BP diastolic 48–88; PULSE 68–71; RESP 16–70; TEMP 36.1; O2SAT 95–100; BMI 17.1
[2021-07-31 14:10] LABS: Hematocrit 22.1 % (37.0-47.0); Hemoglobin 7.4 g/dL (12.2-16.2)
== END 2021-07-31 14:11 | disposition home or self-care (01) ==
LOC: INF 10:33
PROVIDERS: PCP Internal Medicine; Visit Provider Internal Medicine Medical Oncology
DX: C95.90 Leukemia, unspecified not having achieved remission (principal); D64.9 Anemia, unspecified
CPT/HCPCS: 36430; 85014; 85018; P9016